=== PATIENT | female | born 1995 | race African-American/Black ===

== ENCOUNTER 2023-11-11 17:38 | Emergency (ER) | payer MEDICAID, OTHER ==
[~2023-11-11] VITALS: Ht 162.6 cm; Wt 68.0 kg
[2023-11-11 18:09] VITALS: BP 125/88; PULSE 16; RESP 16; TEMP 98.9; O2SAT 100
== END 2023-11-11 23:55 | disposition left against medical advice (07) ==
LOC: ER 17:38
DX: R10.9 Unspecified abdominal pain (principal); Z53.21 Procedure and treatment not carried out due to patient leaving prior to being seen by health care provider
CPT/HCPCS: 99281